=== PATIENT | female | born 1965 | race Caucasian/White ===

== ENCOUNTER 2017-04-28 11:10 | Emergency (ER) | payer MEDICAID ==
[~2017-04-28] VITALS: Ht 160 cm; Wt 98.0 kg
[~2017-04-28 11:10] MED LIST: ACET325T33 PO; IBUP-1542 PO; PREDNISONE; RTPRO5 IH
[2017-04-28 11:13] VITALS: Ht 160 cm; Wt 98.0 kg
[2017-04-28] MEDS ORDERED: IBUPROFEN 600 MG TAB PO ONE (11:30)
--- NOTE | 2017-04-28 12:00 | RADRPT ---
PROCEDURE: XR Knee. CLINICAL INDICATION: Pain. TECHNIQUE: AP, lateral and oblique views of the left knee were obtained. The images reviewed on a PACS workstation. COMPARISON: None. FINDINGS: The bones appear intact, with no evidence of fracture, erosion, demineralization, or dislocation. Th e alignment of the femorotibial and patellofemoral joints appears normal. Mild tricompartmental join t space narrowing is present suggesting early osteoarthritis. No knee effusion. IMPRESSION: No fracture, dislocation or knee effusion. Early, mild, tricompartmental joint space narrowing. RPTAT: QQ .Sakina Salcedo MD, MD Date Time Electronically viewed and signed by .Sakina Salcedo MD, MD on 04/28/2017 12:00 .F/
[2017-04-28] MEDS ORDERED: TRAM50TA2 PO (12:06)
[2017-04-28] MEDS ORDERED: IBUP-1542 PO (12:06)
--- NOTE | 2017-04-28 12:10 | ERD ---
ER Documentation Chief Complaint Chief Complaint LEFT KNEE PAIN HPI This 51-year-old female complains of left knee pain for last 2-3 weeks. She may have had some minor awkward movement. She denies any fall. She has a calf swelling shortness of breath. She denies any previous knee problems. The pain is primarily anterior but diffuse. ROS All systems reviewed and are negative except as per history of present illness. Medications Home Meds Active Scripts Tramadol HCl (Tramadol HCl) 50 Mg Tablet, 50 MG PO Q4 Y for PAIN, #20 TAB Prov:NATASHA BENNETT MD 04/28/17 Ibuprofen* (Motrin*) 600 Mg Tab, 600 MG PO Q6, #20 TAB Prov:NATASHA BENNETT MD 04/28/17 Acetaminophen* (Tylenol*) 325 Mg Tablet, 2 TAB PO Q6 Y for PAIN AND OR ELEVATED TEMP, #20 TAB Prov:CATALINA WOLFF PA-C 08/30/15 Ibuprofen* (Motrin*) 600 Mg Tab, 600 MG PO Q6, #30 TAB Prov:CATALINA WOLFF PA-C 08/30/15 Reported Medications Albuterol Sulfate* (Proventil* Neb) 0.5 Ml Nebu, 0.5 ML IH PRN 09/15/11 [Prednisone] No Conflict Check 09/15/11 Allergies Allergies: Coded Allergies: No Known Allergy (Unverified , 09/15/11) PMhx/Soc History of Surgery: No Anesthesia Reaction: No Hx Neurological Disorder: No Hx Respiratory Disorders: Yes (ASTHMA) Hx Cardiac Disorders: Yes (HTN) Hx Psychiatric Problems: No Hx Miscellaneous Medical Probl: No Hx Alcohol Use: No Hx Substance Use: No Hx Tobacco Use: No Physical Exam Vitals Vital Signs Date Time Temp Pulse Resp B/P Pulse Ox O2 Delivery O2 Flow Rate FiO2 04/28/17 11:13 98.2 65 18 129/61 99 Physical Exam Const: [], [id number]. Head: Atraumatic Eyes: Normal Conjunctiva ENT: Normal External Ears, Nose and Mouth. Neck: Full range of motion..~ No meningismus. Resp: Clear to auscultation bilaterally Cardio: Regular rate and rhythm, no murmurs Abd: Soft, non tender, non distended. Normal bowel sounds Skin: No petechiae or rashes Back: No midline or flank tenderness Ext: No cyanosis, or edema mild diffuse tenderness over across the anterior knee joint. No deformities. No effusions, no warmth or erythema. No calf swelling or Homans sign. Neur: Awake and alert Psych: Normal Mood and Affect Results 24 hrs Current Medications Medications (Trade) Dose Ordered Sig/Jae Route PRN Reason Start Time Stop Time Status Last Admin Dose Admin Ibuprofen (Motrin) 600 mg ONCE ONCE PO 04/28/17 11:30 04/28/17 11:31 DC 04/28/17 11:38 Procedures/MDM X-ray left knee 3V Interpreted by me: Bones: [No fracture] Joints: [No dislocation] Foreign body: [None] impression-no fracture dislocation of the x-ray. Mild compartmental narrowing and degenerative changes. She presents with left knee pain for last few weeks without evidence of fracture , dislocation, signs of septic arthritis, DVT. She likely has osteoarthritis or tendinitis. She will be treated with ibuprofen and tramadol and primary care follow-up and return precautions for fevers, redness, new worsening symptoms. The patient was stable with no new complaints during the ER course. Clinically, there is no current evidence to suggest meningitis, sepsis, acute abdomen, pneumonia, acute coronary syndrome, pulmonary embolism, or any other emergent condition appearing to require further evaluation or hospitalization. The patient should certainly return for any new or worsening symptoms per the aftercare instructions. They should otherwise follow-up with her primary care doctor for reevaluation this week. Departure Diagnosis: Primary Impression: Knee pain Chronicity: acute Laterality: left Qualified Code: M25.562 - Acute pain of left knee Condition: Stable Patient Instructions: Knee Pain, Uncertain Cause Additional Instructions: X RAY DICE TIENE POQUITO ARTRITIS. Cheque otro vez con ware doctor primario en el proximo begum or regresa para mas o nueva simptomas. NATASHA BENNETT MD Apr 28, 2017 12:10
== END 2017-04-28 12:27 | disposition home or self-care (01) ==
LOC: FTE 11:10
DX: M25.562 Pain in left knee (principal); J45.909 Unspecified asthma, uncomplicated; I10 Essential (primary) hypertension
CPT/HCPCS: 73562; Z7502; Z7610